=== PATIENT | female | born 1990 ===

== ENCOUNTER 2023-10-07 08:28 | Day surgery (SDC) | payer OTHER ==
[2023-10-04 11:01] LABS: HEMATOCRIT 40.2 % (36.0-45.00); MEAN CELL VOLUME 82.8 fL (80.00-100.00); MEAN CORPUSCULAR HEMOGLOBIN 28.8 pg (27.00-32.0); MEAN CORPUSCULAR HGB CONC 34.7 g/dl (32.0-36.0); PLATELET COUNT 309 K/uL (150-450); RED BLOOD COUNT 4.85 M/uL (4.00-6.00); RED CELL DISTRIBUTION WIDTH 13.8 % (11.5-14.5)
[2023-10-04 11:04] LABS: URINE APPEARANCE Clear; URINE BILIRRUBIN Negative (NEGATIVE); URINE BLOOD Negative; URINE COLOR Yellow; URINE GLUCOSE Negative (NEGATIVE); URINE LEUKOCYTE Negative; URINE NITRATE Negative; URINE PROTEIN Negative (NEGATIVE); URINE UROBILINOGEN 0.2 E.U./dl
[2023-10-04 11:08] LABS: URINE EPITHELIAL CELLS 8.9 uL (0.0-38.8); URINE RBC 2.9 uL (0.0-20.8)
[2023-10-04 11:15] LABS: URINE WBC 1.5 uL (0.0-23.2)
[2023-10-04 11:27] LABS: INR 0.99; PARTIAL THROMBOPLASTIN TIME 29.3 SECONDS (22.0-34.0); PROTHROMBIN TIME 10.4 SECONDS (9.0-11.5)
[2023-10-04 11:49] LABS: ALBUMIN 3.6 gm/dL (3.4-5.0); CALCIUM 9.3 mg/dL (8.5-10.1); CREATININE SERUM 0.54 mg/dL (0.55-1.02); GFR 129.23; POTASSIUM 4.27 mEq/L (3.5-5.1)
[2023-10-07] MEDS ORDERED: BACTRIM DS TAB1 EACH PO (12:56)
[2023-10-07] MEDS ORDERED: CIPROFLOXACIN2.5 ML OTIC (12:57)
[2023-10-07] MEDS ORDERED: LIDOCAINE HCL 1%/EPINEPHRINE 20ML VIAL IJ ONE (13:00)
[2023-10-07] MEDS ORDERED: BACITRACIN 28.35 GM OINT.TUBE TOP ONE (13:00)
[2023-10-07] MEDS ORDERED: EPINEPHRINE HCL/PF 1 MG/ML AMPUL IR ONE (13:00)
[2023-10-07] MEDS ORDERED: CIPROFLOXACIN HCL 0.175 MG/DR DROPS OTIC ONE (13:00)
[2023-10-07] MEDS ORDERED: POVIDONE-IODINE 118 ML BOTT TOP ONE (13:00)
== END 2023-10-07 15:00 | disposition home or self-care (01) ==
LOC: CIR.AMB 08:28
PROVIDERS: ATTEND Otolaryngology Otology & Neurotology
DX: H90.11 Conductive hearing loss, unilateral, right ear, with unrestricted hearing on the contralateral side (principal); H72.01 Central perforation of tympanic membrane, right ear; G47.30 Sleep apnea, unspecified; Z88.0 Allergy status to penicillin

== ENCOUNTER 2025-03-01 11:00 | Day surgery (SDC) | payer OTHER ==
[2025-02-21 10:50] VITALS: BP 112/73
[~2025-03-01] VITALS: Ht 152.4 cm; Wt 60.3 kg
[~2025-03-01 11:00] MED LIST: BACTRIM DS TAB1 EACH PO; CIPROFLOXACIN2.5 ML OTIC
[2025-03-01] MEDS ORDERED: POVIDONE-IODINE 118 ML BOTT TOP ONE (12:33)
[2025-03-01] MEDS ORDERED: EPINEPHRINE HCL/PF 1 MG/ML AMPUL ONE (13:59)
[2025-03-01] MEDS ORDERED: LIDOCAINE HCL 1%/EPINEPHRINE 20ML VIAL IJ ONE (14:00)
[2025-03-01] MEDS ORDERED: CIPROFLOXACIN2.5 ML OTIC (15:44)
[2025-03-01] MEDS ORDERED: CLEOCIN HCL300 MG PO (15:44)
[2025-03-01] MEDS ORDERED: CIPROFLOXACIN HCL 0.175 MG/DR DROPS OTIC ONE (16:15)
== END 2025-03-01 18:40 | disposition home or self-care (01) ==
LOC: CIR.AMB 11:00
PROVIDERS: ATTEND Otolaryngology Otology & Neurotology
DX: H73.812 Atrophic flaccid tympanic membrane, left ear (principal); H65.22 Chronic serous otitis media, left ear; H72.02 Central perforation of tympanic membrane, left ear